=== PATIENT | female | born 1965 | race Caucasian/White ===

== ENCOUNTER 2023-01-18 10:20 | Outpatient (CLI) | payer OTHER, SELFPAY ==
[2023-01-18 10:53] LABS: Hemoglobin A1C 10.2 % (<5.7)
[2023-01-18 10:56] LABS: Anion Gap 8 mmol/L (8-16); Blood Urea Nitrogen 13 mg/dL (7-17); Carbon Dioxide 30 mmol/L (22-30); Chloride 100 mmol/L (98-107); Cholesterol 245 mg/dL (0-200); Estimated Glomerular Filt Rate > 60; Glucose 195 mg/dL (65-110); HDL Direct 61 mg/dL; Potassium 3.9 mmol/L (3.4-5.0); Sodium 138 mmol/L (137-145); Triglycerides 177 mg/dL (<150)
[2023-01-18 11:07] LABS: LDL Cholesterol Direct 159 mg/dL
[2023-01-18 11:26] LABS: Thyroid Stimulating Hormone 0.467 uIU/mL (0.465-4.680)
== END 2023-01-18 10:21 | disposition home or self-care (01) ==
LOC: ANHLAB 10:23
PROVIDERS: PCP Family Medicine; Visit Provider Nurse Practitioner Family
DX: Z13.29 Encounter for screening for other suspected endocrine disorder (principal); R73.03 Prediabetes; Z13.220 Encounter for screening for lipoid disorders; Z13.1 Encounter for screening for diabetes mellitus
CPT/HCPCS: 36415; 80048; 80061; 83036; 84443